=== PATIENT | female | born 1945 | race Caucasian/White ===

== ENCOUNTER 2018-07-27 22:46 | Emergency (ER) | payer OTHER ==
[~2018-07-27] VITALS: Ht 157.5 cm; Wt 72.6 kg
[~2018-07-27 22:46] MED LIST: ACETAMINOPHEN325 M1 PO; COZAAR 50 MG TA50 M1 PO; GLUCOPHAGE500 MG PO; LOPRESSOR100 MG PO; NORCO 5-325 TA1 EACH PO; VENOFER100 MG/51 IV
[2018-07-27 23:57] VITALS: BP 140/48
== END 2018-07-27 23:57 | disposition home or self-care (01) ==
LOC: ER 22:46
DX: S82.192A Other fracture of upper end of left tibia, initial encounter for closed fracture (principal); I10 Essential (primary) hypertension; Z88.8 Allergy status to other drugs, medicaments and biological substances; W22.8XXA Striking against or struck by other objects, initial encounter; Y93.89 Activity, other specified; Y92.89 Other specified places as the place of occurrence of the external cause; Y99.8 Other external cause status

== ENCOUNTER 2018-07-29 10:30 | Emergency (ER) | payer OTHER ==
[~2018-07-29] VITALS: Ht 154.9 cm; Wt 72.6 kg
[2018-07-29] MEDS ORDERED: HYDROCODONE-AP1 EAC6 PO (12:58)
[2018-07-29 15:37] VITALS: BP 119/52
== END 2018-07-30 08:21 | disposition home or self-care (01) ==
LOC: ER 10:30
DX: S82.142A Displaced bicondylar fracture of left tibia, initial encounter for closed fracture (principal); I10 Essential (primary) hypertension; Z88.8 Allergy status to other drugs, medicaments and biological substances; W22.03XA Walked into furniture, initial encounter; Y93.89 Activity, other specified; Y92.89 Other specified places as the place of occurrence of the external cause; Y99.8 Other external cause status